=== PATIENT | male | born 1990 | race Caucasian/White ===

== ENCOUNTER → 2017-01-23 | Outpatient (CLI) | payer OTHER ==
--- NOTE | 2017-01-23 14:06 | REP ---
CERVICAL SPINE, SEVEN VIEWS: HISTORY: Sprain. There is no acute fracture or subluxation. The intervertebral discs are normal in height. The left neural foramina are patent. The right neural foramina are not well seen. IMPRESSION: There is no acute fracture or subluxation. Signed by Bowen Aguilar MD 01/23/2017 02:08 P
--- NOTE | 2017-01-23 14:07 | REP ---
THORACIC SPINE, THREE VIEWS: HISTORY: Sprain. There is no acute fracture or subluxation. The intervertebral discs are normal in height. IMPRESSION: There is no acute fracture or subluxation. Signed by Bowen Aguilar MD 01/23/2017 02:07 P
== END ==
LOC: M WUC 13:04
PROVIDERS: ATTEND Physician Assistant
DX: S13.4XXA Sprain of ligaments of cervical spine, initial encounter (principal); S23.3XXA Sprain of ligaments of thoracic spine, initial encounter; X58.XXXA Exposure to other specified factors, initial encounter; Y92.9 Unspecified place or not applicable; Y93.9 Activity, unspecified; Y99.9 Unspecified external cause status